=== PATIENT | male | born 2000 | race Caucasian/White ===

== ENCOUNTER 2021-06-18 07:53 | Day surgery (SDC) | payer OTHER ==
[2021-06-14 17:12] VITALS: BMI 24.1
[2021-06-18 08:32] VITALS: TEMP 97.8
[2021-06-18] MEDS ORDERED: BUPIVACAINE HCL/PF 0.25% (2.5MG/ML) 10 ML VIAL ONE (10:05)
[2021-06-18] MEDS ORDERED: PROMETHAZINE HCL 25 MG/1 ML VIAL IVPUSH PRN ×2 (10:40→13:31)
[2021-06-18] MEDS ORDERED: LACTATED RINGERS SOLUTION 1,000 ML IV SCH (10:45)
[2021-06-18] MEDS ORDERED: MIDAZOLAM HCL 2 MG/2 ML SINGLE DOSE VIAL ONE (11:00)
[2021-06-18] MEDS ORDERED: PROPOFOL 20 ML ONE (13:17)
[2021-06-18] MEDS ORDERED: SUCCINYLCHOLINE CHLORIDE 200 MG/10 ML SYRINGE ONE (13:17)
[2021-06-18] MEDS ORDERED: ONDANSETRON 4 MG/2 ML VIAL IVPUSH PRN (13:31)
[2021-06-18] MEDS ORDERED: oxyCODONE HCL 5 MG TABLET PO PRN ×2 (13:31)
[2021-06-18 15:23] VITALS: BP 120/71; PULSE 71
== END 2021-06-18 15:15 | disposition home or self-care (01) ==
LOC: FASU 07:53
PROVIDERS: ATTEND Orthopaedic Surgery Sports Medicine
PROC: 0SBD4ZZ Excision of Left Knee Joint, Percutaneous Endoscopic Approach (ICD-10-PCS; 2021-06-18)
PROC: 0SBD4ZZ Excision of Left Knee Joint, Percutaneous Endoscopic Approach (ICD-10-PCS; principal; 2021-06-18 11:39)
PROC: 0SBD4ZZ Excision of Left Knee Joint, Percutaneous Endoscopic Approach (ICD-10-PCS; 2021-06-18 11:39)
DX: S83.242A Other tear of medial meniscus, current injury, left knee, initial encounter (principal); S83.282A Other tear of lateral meniscus, current injury, left knee, initial encounter; M94.262 Chondromalacia, left knee; M65.9 Synovitis and tenosynovitis, unspecified; X58.XXXA Exposure to other specified factors, initial encounter; Y93.9 Activity, unspecified; Y92.9 Unspecified place or not applicable
CPT/HCPCS: 29880; G0289; 94760